=== PATIENT | female | born 1960 | race Two or more races ===

== ENCOUNTER 2019-03-29 08:10 | Day surgery (SDC) | payer OTHER ==
[~2019-03-29] VITALS: Ht 167.6 cm; Wt 82.6 kg
[2019-03-29] VITALS (10 sets, daily range): BP systolic 99–144; BP diastolic 59–77
--- NOTE | 2019-03-29 06:54 | Pre-Procedure Note/Attestation ---
Pre-Procedure Note/Attestation Complete Prior to Procedure Planned Procedure: right Procedure Narrative: rt knee scope, medial meniscectomy, chondroplasty, resection of loose fragment Indications for Procedure Pre-Operative Diagnosis: rt knee medial meniscus tear Attestation I attest that I discussed the nature of the procedure; its benefits; risks and complications; and alternatives (and the risks and benefits of such alternatives ), prior to the procedure, with the patient (or the patient's legal community service representative). I attest that, if there was a reasonable possibility of needing a blood transfusion, the patient (or the patient's legal community service representative) was given the [facility] standardized written summary, pursuant to the [place] Blood Safety Act ([place] Health and Safety Code # 1645, as amended). I attest that I re-evaluated the patient just prior to the surgery and that there has been no change in the patient's H&P, except as documented below: none Yunier Olsen MD Mar 29, 2019 06:53
[~2019-03-29 08:10] MED LIST: Clindamycin 600mg/D5W 50ml IV ONE; NAPROXEN375 M2 ORAL; OMEPRAZOLE20 M3 ORAL; celeBREX 200mg Cap **SURGERY PATIENTS ONLY ORAL ONE; oxyCONTIN 20mg tab ORAL ONE
[2019-03-29] MEDS ORDERED: celeBREX 200mg Cap **SURGERY PATIENTS ONLY ORAL ONE (08:54)
[2019-03-29] MEDS ORDERED: oxyCONTIN 20mg tab ORAL ONE (08:54)
[2019-03-29] MEDS ORDERED: HYDROmorphone 1mg/ml Carpuject SUBQ PRN (10:00)
[2019-03-29] MEDS ORDERED: Tylenol #3 tab (300mg/30mg) ORAL PRN (10:00)
[2019-03-29] MEDS ORDERED: HYDROcodone/Acetamin 5/325 tab ORAL PRN (10:00)
[2019-03-29] MEDS ORDERED: Ropivacaine 5mg/ml Vial 20ml INJ ONE (10:02)
[2019-03-29] MEDS ORDERED: fentaNYL 100 mcg/2 mL IV ONE (10:20)
[2019-03-29] MEDS ORDERED: Midazolam 2mg/2ml Inj ONE (10:20)
[2019-03-29] MEDS ORDERED: Ketorolac 30mg Inj ONE (10:30)
[2019-03-29] MEDS ORDERED: Lidocaine 1% MPF 10mg/ml 5ml ONE (10:30)
[2019-03-29] MEDS ORDERED: Propofol 200mg/20ml IV ONE (10:30)
[2019-03-29] MEDS ORDERED: LR 1000ml ONE (11:00)
[2019-03-29] MEDS ORDERED: NS Irrig 2000ml IRRIG ONE (11:00)
[2019-03-29] MEDS ORDERED: Meperidine 25mg/0.5ml Inj (FOR RIGORS ONLY) IV PRN (11:30)
[2019-03-29] MEDS ORDERED: DiphenhydrAMINE 50mg/ml Inj IVP PRN (11:30)
[2019-03-29] MEDS ORDERED: LR 1000ml 1,000 ML IVLG SCH (11:30)
[2019-03-29] MEDS ORDERED: Ketorolac 30mg Inj IV PRN (11:30)
--- NOTE | 2019-03-29 11:30 | Anethesia Preoperative Eval ---
Anesthesia Pre-op PMH/ROS General Date of Evaluation: Mar 29, 2019 Time of Evaluation: 10:40 Anesthesiologist: Luisa ASA Score: ASA 2 Mallampati Score Class I : Soft palate, uvula, fauces, pillars visible Class II: Soft palate, uvula, fauces visible Class III: Soft palate, base of uvula visible Class IV: Only hard plate visible Mallampati Classification: Class II Surgeon: Pretty Diagnosis: R knee pain Surgical Procedure: R knee scope Anesthesia History: none Family History: no anesthesia problems Allergies: Coded Allergies: No Known Allergies (Unverified , 03/29/19) Medications: see eMAR Patient NPO?: Yes Past Medical History Cardiovascular: Denies: HTN, CAD, ID, valve dz, arrhythmia, other Pulmonary: Denies: asthma, COPD, VIKA, other Gastrointestinal/Genitourinary: Reports: GERD; Denies: CRI, ESRD, other Neurologic/Psychiatric: Denies: dementia, CVA, depression/anxiety, TIA, other Endocrine: Denies: DM, hypothyroidism, steroids, other HEENT: Denies: cataract (L), cataract (R), glaucoma, ELEM (L), ELEM (R), other Hematology/Immune: Denies: anemia, DVT, bleeding disorder, other Musculoskeletal/Integumentary: Denies: OA, RA, DJD, DDD, edema, other Other: other - verweight PMH Narrative: as above PSxH Narrative: L patella ORIF Anesthesia Pre-op Phys. Exam Physician Exam Last Vital Signs Date Time Temp Pulse Resp B/P (MAP) Pulse Ox O2 Delivery O2 Flow Rate FiO2 03/29/19 08:40 Room Air 03/29/19 08:36 98.1 75 18 144/69 98 Constitutional: NAD Neurologic: CN 2-12 intact Cardiovascular: RRR, no M/R/G Respiratory: CTA Gastrointestinal: S/NT/ND Airway Exam Mallampati Score: Class II MO: full Neck: flexible ROM: full Teeth: intact Dentures: no upper, no lower Anesthesia Pre-op A/P Labs see chart Studies Pre-op Studies: EKG - NSR Risk Assessment & Plan Assessment: ASA 2 Plan: GA with LMA Status Change Before Surgery: No Pre-Antibiotics Drug: Ancef 1gr. Given Within 1 Hr of Incision: Yes Time Given: 11:20 Ronnie Moran MD Mar 29, 2019 11:30
--- NOTE | 2019-03-29 11:38 | Brief Operative Note ---
Immediate Post Operative Note Operative Note Chief Complaint: rt knee pain Pre-op Diagnosis: rt knee medial meniscus tear Procedure: rt knee scope, lateral meniscectomy and chondroplasty Post-op Diagnosis: same as pre-op Findings: consistent w/pre-op dx studies Surgeon: md debbie Ladle Patcher: annie chirinos Anesthesiologist: md katherine Anesthesia: general Specimen: none Complications: none Condition: stable Fluids: ns Estimated Blood Loss: minimal Drains: none Implant(s) used?: No Yunier Olsen MD Mar 29, 2019 11:38
--- NOTE | 2019-03-29 11:53 | Immediate Post-Op Evaluation ---
Immediate Post-Op Evalulation Immediate Post-Op Evalulation Procedure: R knee arthroscopy meniscectomy Date of Evaluation: Mar 29, 2019 Time of Evaluation: 11:52 IV Fluids: 600 Blood Products: none Estimated Blood Loss: min Urinary Output: none Blood Pressure Systolic: 116 Blood Pressure Diastolic: 68 Pulse Rate: 64 Respiratory Rate: 20 O2 Sat by Pulse Oximetry: 98 Temperature (Fahrenheit): 97.9 Pain Score (1-10): 1 Nausea: No Vomiting: No Complications none Patient Status: reacts, patent, none Ronnie Moran MD Mar 29, 2019 11:53
--- NOTE | 2019-03-29 13:15 | 48 Hour Post Anesthesia Eval ---
Post Anesthesia Evaluation Procedure: R knee arthroscopy meniscectomy Date of Evaluation: Mar 29, 2019 Time of Evaluation: 13:14 Blood Pressure Systolic: 116 0: 78 Pulse Rate: 64 Respiratory Rate: 20 Temperature (Fahrenheit): 97.6 O2 Sat by Pulse Oximetry: 98 Airway: patent Nausea: No Vomiting: No Pain Intensity: 1 Hydration Status: adequate Cardiopulmonary Status: stable Mental Status/LOC: patient returned to baseline Follow-up Care/Observations: n/a Post-Anesthesia Complications: none Follow-up care needed: ready to discharge Ronnie Moran MD Mar 29, 2019 13:15
[2019-03-29] MEDS ORDERED: D5 1/2NS 1,000 ML IV SCH (15:00)
--- NOTE | 2019-03-29 17:00 | Operative Note - Dictated ---
DATE OF OPERATION: 03/29/2019 PREOPERATIVE DIAGNOSES: 1. Right knee lateral meniscus tearing. 2. Right knee lateral compartment arthritis. POSTOPERATIVE DIAGNOSES: 1. 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 2. Right knee complex tear of the posterior horn body of the lateral meniscus with truncation of the posterior horn from the anterior horn lateral meniscus at the level of the body with a complex tear rubbing against the lateral femoral condyle, lateral tibial plateau. 3. Right knee grade 4 chondromalacia of the lateral tibial plateau in the posterior lateral corner of the knee measuring 2 x 2 cm with a corresponding kissing lesion on the lateral femoral condyle measuring 2 x 3 cm on the weightbearing zone. 4. No evidence of medial meniscus tearing. PROCEDURE: 1. Right knee arthroscopy and extensive intra-articular shaving. 2. Right knee patellofemoral as well as lateral femoral chondroplasty. 3. Right knee partial lateral meniscectomy involving 35% posterior horn body lateral meniscus. SURGEON: Yunier Olsen M.D. MASTER FIRE CONTROL TECHNICIAN: Siri Flores PA-C. Soccer Player was present during the actual operative portion of the case and was important and essential part of the operation. During the operation, the volunteer assistant held and operated the arthroscopic camera for visualization, assisted by manipulating the leg to help with visualization, and helped with essential parts of the repair process as necessary such as operating surgical instruments under surgeon supervision, suture management, and wound closures. ANESTHESIOLOGIST: Ronnie Moran M.D. ANESTHESIA: General LMA anesthesia. TOURNIQUET TIME: 25 minutes. EBL: Minimal. COMPLICATIONS: None. SURGICAL INDICATION: The patent is a 59-year-old female, who sustained the above injury to her knee. The patient was treated non-operative initially, but this did not alleviate the patients symptoms. Therefore, after discussing all non-surgical and surgical options, and discussing all foreseeable risk and benefits of surgery, the patient opted for surgical treatment as described above. PATIENT POSITIONING: The patient was brought to the operating room table and placed supine. All pressure points were well padded. General Anesthesia was induced and a well padded tourniquet was placed on the thigh. The lateral post was placed and positioned to allow for opening of the medial compartment of the knee without placing pressure over the fibular head. Patients entire leg was prepped and draped in the usual sterile fashion. Time-out was performed and preop abx was given and after exsanguinating the lower extremity, the tourniquet was inflated to 275 mm of mercury. EXAMINATION OF THE KNEE UNDER ANESTHESIA: Before prepping and draping the knee and while the patient was relaxed under general anesthesia, the knee was examined for ROM, and anterior and posterior, medial and lateral, posterolateral, and posteromedial instability. Pivot shift testing was performed. There was no evidence of loss of motion or instability and the pivot shift testing was negative. PORTAL PLACEMENT: The lateral portal was placed with the knee flexed to 90 degrees at the level of inferior border of the patella in line with the lateral border of the patella. A cm skin incision was made with an eleven blade, and using a blunt obturator, the capsule was gently penetrated. Sterile saline solution was then infused inside the knee with the aid of a pump set at 35 mm mercury pressure. Under direct visualization, placement of the medial portal was preliminary judged using a spinal needle, and it was subsequently established using the same technique as the lateral portal. Care was given not to injure the cutaneous branches of the medial Saphenous nerve or the subcutaneous veins. DIAGNOSTIC ARTHROSCOPY: The suprapatellar patellar pouch was visualized. There was no evidence of scar tissue or loose fragments. The medial and lateral patellar facets and trochlear groove articular cartilage was visualized. There was some chondral damage over the lateral patellar facet. The medial plica shelf and the corresponding medial femoral condyle articular cartilage were visualized. There was no significantly thickening of the medial plica shelf and there were no kissing? lesion over the medial femoral condyle. The lateral gutter and the posterolateral corner of the knee visualized. There were no loose bodies, and the popliteus tendon and other structures of the posterolateral corner of the knee were intact intra-articularly. At this point, the knee was placed in the figure of four position and the lateral compartment was entered. The lateral femoral condyle, lateral tibial plateau, and the anterior, body, and the posterior horn of the lateral meniscus were visualized and probed. There was extensive chondral damage and kissing lesion over the lateral femoral condyle measuring 2 x 2 cm on the posterolateral tibial side and 2 x 3 cm on the weightbearing zone on the lateral femoral condyle. There was a complex tear over the posterior horn body of the lateral meniscus. The knee was then placed at 90 degree and the ACL and PCL were visualized and probed. The ACL was completely intact on visualization and probing, and it had excellent tension. The PCL was completely intact on visualization and probing and it had excellent tension. The medial compartment was then entered and the medial femoral condyle, medial tibial plateau, and the anterior, body, and the posterior horn of the medial meniscus were visualized and probed. The articular surfaces were intact and devoid of articular cartilage damage. The medial meniscus was completely intact both on its undersurface and on the top. The medial gutter was visualized. There was no evidence of defect or loose fragments. The scope was then brought back to the patella femoral compartment. OPERATIVE ARTHROSCOPY: At this point, all loose debris and fragments were removed with the use of suction motorized shaver. Specific attention was given to assure all visible loose fragments were irrigated out of the knee joint with pump inflow and cannula outflow system. For patella femoral chondroplasty, the frayed articular cartilage of the undersurface of the patella and the trochlear groove were debrided using a motorized shaver. Suction was used to pull in the loose fragments and flaps of the cartilage and to minimize damage to the intact and well attached portion of the cartilage. This allowed for a smooth surface for the articular cartilage gliding. For lateral meniscectomy, at this point, attention was given to the lateral meniscus. Using combination of baskets and jacqui, the torn portion of the lateral meniscus was removed. Attention was given to remove all displaced and unstable portion of the lateral meniscus while maintaining as much of the functional portion of the meniscus as possible. Approximately, 35% of the posterior horn and body of the meniscus was removed in this fashion. The transition between the meniscectomy portion and intact portion of the meniscus was smoothed out with combination of small baskets and jacqui. Excellent transition zone was obtained in this fashion. For lateral compartment chondroplasty, care was given to the area of cartilage damage in the lateral compartment. The frayed and loose fragments of articular cartilage were debrided using a motorized shaver. Suction was used to pull in the loose fragments and flaps of the cartilage and to minimize damage to the intact and well attached portion of the cartilage. This allowed for smooth surfaces for the articular cartilage. CONDITION AT DISCHARGE FROM OPERATING ROOM: The knee was irrigated with copious amount of normal saline at the end of the procedure. The scope was removed and the water was drained. The skin edges were re-approximated and sterile dressing was applied. All lap count and instrument counts were correct. Patient tolerated the procedure well without complications and was taken to the recovery room in stable conditions. Yunier Olsen M.D. DR: NIDA JOB#: [id number] CC:
== END 2019-03-29 14:15 | disposition home or self-care (01) ==
LOC: SUR 08:10
DX: S83.281A Other tear of lateral meniscus, current injury, right knee, initial encounter (principal); M94.261 Chondromalacia, right knee; X58.XXXA Exposure to other specified factors, initial encounter; Y92.9 Unspecified place or not applicable; K21.9 Gastro-esophageal reflux disease without esophagitis; E66.3 Overweight; Z68.29 Body mass index [BMI] 29.0-29.9, adult
CPT/HCPCS: 29881; J0690; J1885; J2250; J2405; J2704; J2795; J3010; J7120; 94003; 94150